=== PATIENT | male | born 2000 | race Two or more races ===

== ENCOUNTER 2023-12-24 09:50 | Emergency (ER) | payer MEDICAID ==
[~2023-12-24] VITALS: Ht 167.6 cm; Wt 75.0 kg
[2023-12-24 09:55] VITALS: TEMP 98.2
[2023-12-24] MEDS: LIDOCAINE 5% TRANSDERMAL PATCH TD ONE (11:53)
[2023-12-24] MEDS: KETOROLAC TROMETHAMINE 30 MG/ML VIAL IM ONE (11:53)
[2023-12-24] MEDS: BACLOFEN 10 MG TABLET PO ONE (11:53)
[2023-12-24] MEDS ORDERED: IBUP-1492 PO (12:46)
[2023-12-24] MEDS ORDERED: BACL10TA PO (12:50)
[2023-12-24 13:15] VITALS: BP 130/67; PULSE 66; RESP 18; O2SAT 99
== END 2023-12-24 13:50 | disposition home or self-care (01) ==
LOC: EMS 09:50
DX: S39.012A Strain of muscle, fascia and tendon of lower back, initial encounter (principal); G89.29 Other chronic pain; X58.XXXA Exposure to other specified factors, initial encounter; Y93.89 Activity, other specified; Y92.89 Other specified places as the place of occurrence of the external cause; Y99.8 Other external cause status
CPT/HCPCS: 99283; 72100; 96372; J1885

== ENCOUNTER 2023-12-30 22:46 | Inpatient (IN) | payer MEDICAID ==
[~2023-12-30] VITALS: Ht 165.1 cm; Wt 63.0 kg
[~2023-12-30 22:46] MED LIST: BACL10TA PO; IBUP-1492 PO
[2023-12-30 23:34] LABS: BASOPHILS % (AUTO) 0.3 % (0.0-2.0); EOSINOPHILS % (AUTO) 1.7 % (1.0-6.0); HEMATOCRIT 39.6 % (41-53); HEMOGLOBIN 13.1 g/dL (13.5-17.5); LYMPHOCYTES # (AUTO) 1.9 K/uL (1.0-4.8); MEAN CORPUSCULAR HEMOGLOBIN 29.1 pg (26.0-34.0); MEAN CORPUSCULAR HGB CONC 33.1 G/dL (31.0-37.0); MEAN CORPUSCULAR VOLUME 88 fL (80-100); MONOCYTES # (AUTO) 0.9 K/uL (0.1-1.0); MONOCYTES % (AUTO) 8.7 % (2.0-9.0); NEUTROPHILS # (AUTO) 7.1 K/uL (1.8-7.7); NEUTROPHILS % (AUTO) 70.3 % (40.0-70.0); PLATELET COUNT (AUTO) 269 K/uL (150-450); RED BLOOD CELL COUNT(AUTO) 4.51 MIL/uL (4.50-5.90); RED CELL DISTRIBUTION WIDTH 12.9 % (11.5-14.5); WHITE BLOOD COUNT (AUTO) 10.1 K/uL (4.5-11.0)
[2023-12-30 23:43] LABS: ANION GAP 11 mmol/L (8-16); CARBON DIOXIDE 26 mmol/L (22-29); CHLORIDE 100 mmol/L (98-107); CREATININE 0.93 mg/dL (0.60-1.30); GLOMERULAR FILTR. RATE CALC > 60 mL/min (>60); GLUCOSE,RANDOM 102 mg/dL (70-110); POTASSIUM 3.8 mmol/L (3.5-5.1); SODIUM SERUM 137 mmol/L (136-145); UREA NITROGEN, BLOOD 13 mg/dL (7-18)
[2023-12-31] MEDS: HYDROmorphone HCL 2 MG/ML SYRINGE IVP ONE (00:53)
[2023-12-31] MEDS: PIPERACILLIN/TAZO 3.375 GM/D5W 50 ML IV ONE (00:54)
[2023-12-31] MEDS: LIDOCAINE 1% 10 ML VIAL SQ ONE (00:54)
[2023-12-31] MEDS: ONDANSETRON HCL 4 MG/2 ML VIAL IVP ONE ×2 (00:54→03:59)
[2023-12-31] MEDS: IOHEXOL 9 MG/ML 500 ML BOTTLE PO ONE (02:10)
[2023-12-31] MEDS: SODIUM CHLORIDE 0.9% 1,000 ML IV ONE (02:10)
[2023-12-31] MEDS ORDERED: SODIUM CHLORIDE 0.9% 100 ML ONE (03:36)
[2023-12-31] MEDS ORDERED: IOHEXOL 350 MG/ML 100 ML VIAL ONE (03:36)
[2023-12-31 04:30] VITALS: BP 119/73; PULSE 54; RESP 18; O2SAT 97
[2023-12-31] MEDS: PIPERACILLIN/TAZO 3.375 GM/D5W 50 ML IV SCH ×2 (06:27→22:00)
[2023-12-31 07:35] VITALS: BP 116/69; PULSE 52; RESP 19; TEMP 98; O2SAT 100
[2023-12-31] MEDS ORDERED: MORPHINE SULFATE 2 MG/ML SYRINGE IVP PRN (12:30)
[2023-12-31] MEDS ORDERED: ZOLPIDEM TARTRATE 5 MG TABLET PO PRN (12:30)
[2023-12-31] MEDS ORDERED: ACETAMINOPHEN 325 MG TABLET PO PRN (12:30)
[2023-12-31] MEDS ORDERED: MAGNESIUM HYDROXIDE SUSPENSION 30 ML UDCUP PO PRN (12:30)
[2023-12-31] MEDS ORDERED: BISACODYL 10 MG RECTAL RECTAL SUPPOSITORY PR PRN (12:30)
[2023-12-31] MEDS ORDERED: BACLOFEN 10 MG TABLET PO PRN (12:30)
[2023-12-31] MEDS ORDERED: ONDANSETRON HCL 4 MG/2 ML VIAL IVP PRN (12:30)
[2023-12-31] MEDS: HEPARIN SODIUM,PORCINE 5,000 UNITS/ML VIAL SQ SCH (15:52)
[2023-12-31 16:00] VITALS: BP 120/71; PULSE 61; RESP 20; TEMP 98.3; O2SAT 99
[2023-12-31 20:15] VITALS: BP 113/61; PULSE 62; RESP 18; TEMP 98; O2SAT 100
[2023-12-31] MEDS: DOCUSATE SODIUM 100 MG CAPSULE PO SCH (20:15)
[2023-12-31] MEDS: HYDROCODONE/ACETAMINOPHEN 5-325 MG TABLET PO PRN (20:15)
[2024-01-01 05:17] VITALS: BP 134/50; PULSE 59; RESP 18; TEMP 98; O2SAT 99
[2024-01-01 07:08] LABS: BASOPHILS % (AUTO) 0.9 % (0.0-2.0); EOSINOPHILS % (AUTO) 2.8 % (1.0-6.0); HEMATOCRIT 39.7 % (41-53); HEMOGLOBIN 13.4 g/dL (13.5-17.5); LYMPHOCYTES # (AUTO) 1.6 K/uL (1.0-4.8); LYMPHOCYTES % (AUTO) 26.6 % (22.0-44.0); MEAN CORPUSCULAR HEMOGLOBIN 29.5 pg (26.0-34.0); MEAN CORPUSCULAR HGB CONC 33.8 G/dL (31.0-37.0); MEAN CORPUSCULAR VOLUME 87 fL (80-100); MONOCYTES # (AUTO) 0.8 K/uL (0.1-1.0); MONOCYTES % (AUTO) 12.6 % (2.0-9.0); NEUTROPHILS # (AUTO) 3.5 K/uL (1.8-7.7); NEUTROPHILS % (AUTO) 57.1 % (40.0-70.0); PLATELET COUNT (AUTO) 267 K/uL (150-450); RED BLOOD CELL COUNT(AUTO) 4.55 MIL/uL (4.50-5.90); RED CELL DISTRIBUTION WIDTH 13.1 % (11.5-14.5); WHITE BLOOD COUNT (AUTO) 6.2 K/uL (4.5-11.0)
[2024-01-01 07:11] LABS: ANION GAP 7 mmol/L (8-16); CALCIUM, TOTAL 9.1 mg/dL (8.8-10.5); CARBON DIOXIDE 29 mmol/L (22-29); CHLORIDE 102 mmol/L (98-107); CREATININE 1.02 mg/dL (0.60-1.30); GLOMERULAR FILTR. RATE CALC > 60 mL/min (>60); GLUCOSE,RANDOM 90 mg/dL (70-110); POTASSIUM 3.9 mmol/L (3.5-5.1); SODIUM SERUM 138 mmol/L (136-145); UREA NITROGEN, BLOOD 7 mg/dL (7-18)
[2024-01-01 07:24] VITALS: BP 105/61; PULSE 57; RESP 18; TEMP 98.4; O2SAT 99
[2024-01-01] MEDS: PANTOPRAZOLE SODIUM 40 MG DR TABLET PO SCH (08:03)
[2024-01-01 15:21] VITALS: BP 112/61; PULSE 59; RESP 18; TEMP 98.5; O2SAT 98
[2024-01-01] MEDS ORDERED: SODIUM CL IRRIG SOLN BOTTLE 250 ML IRRIG ONE (16:47)
[2024-01-01 19:53] VITALS: BP 110/60; PULSE 55; RESP 18; TEMP 97.8; O2SAT 99
[2024-01-02 06:21] VITALS: BP 107/69; PULSE 56; RESP 18; TEMP 97.9; O2SAT 99
[2024-01-02 07:25] LABS: BASOPHILS % (AUTO) 0.7 % (0.0-2.0); EOSINOPHILS % (AUTO) 2.3 % (1.0-6.0); HEMATOCRIT 41.1 % (41-53); HEMOGLOBIN 13.8 g/dL (13.5-17.5); LYMPHOCYTES # (AUTO) 1.7 K/uL (1.0-4.8); LYMPHOCYTES % (AUTO) 24.3 % (22.0-44.0); MEAN CORPUSCULAR HEMOGLOBIN 29.3 pg (26.0-34.0); MEAN CORPUSCULAR HGB CONC 33.5 G/dL (31.0-37.0); MEAN CORPUSCULAR VOLUME 87 fL (80-100); MONOCYTES # (AUTO) 0.6 K/uL (0.1-1.0); NEUTROPHILS # (AUTO) 4.5 K/uL (1.8-7.7); NEUTROPHILS % (AUTO) 63.7 % (40.0-70.0); PLATELET COUNT (AUTO) 299 K/uL (150-450); RED BLOOD CELL COUNT(AUTO) 4.71 MIL/uL (4.50-5.90); WHITE BLOOD COUNT (AUTO) 7.1 K/uL (4.5-11.0)
[2024-01-02 07:31] LABS: ANION GAP 7 mmol/L (8-16); CALCIUM, TOTAL 8.9 mg/dL (8.8-10.5); CARBON DIOXIDE 28 mmol/L (22-29); CHLORIDE 103 mmol/L (98-107); GLOMERULAR FILTR. RATE CALC > 60 mL/min (>60); GLUCOSE,RANDOM 95 mg/dL (70-110); POTASSIUM 3.7 mmol/L (3.5-5.1); SODIUM SERUM 138 mmol/L (136-145); UREA NITROGEN, BLOOD 12 mg/dL (7-18)
[2024-01-02 09:35] VITALS: BP 121/71; PULSE 60; RESP 19; TEMP 98.9; O2SAT 98
[2024-01-02 16:43] VITALS: BP 118/70; PULSE 64; RESP 19; TEMP 98.2; O2SAT 99
[2024-01-02 19:31] VITALS: BP 116/62; PULSE 58; RESP 18; TEMP 98.8; O2SAT 97
[2024-01-03 04:49] VITALS: BP 112/64; PULSE 61; RESP 18; TEMP 97.8; O2SAT 95
[2024-01-03 06:53] LABS: BASOPHILS % (AUTO) 0.5 % (0.0-2.0); EOSINOPHILS % (AUTO) 2.4 % (1.0-6.0); HEMATOCRIT 43.3 % (41-53); HEMOGLOBIN 14.4 g/dL (13.5-17.5); LYMPHOCYTES # (AUTO) 2.1 K/uL (1.0-4.8); LYMPHOCYTES % (AUTO) 29.1 % (22.0-44.0); MEAN CORPUSCULAR HEMOGLOBIN 29.2 pg (26.0-34.0); MEAN CORPUSCULAR HGB CONC 33.3 G/dL (31.0-37.0); MEAN CORPUSCULAR VOLUME 88 fL (80-100); MONOCYTES # (AUTO) 0.6 K/uL (0.1-1.0); NEUTROPHILS # (AUTO) 4.2 K/uL (1.8-7.7); PLATELET COUNT (AUTO) 317 K/uL (150-450); RED BLOOD CELL COUNT(AUTO) 4.95 MIL/uL (4.50-5.90); RED CELL DISTRIBUTION WIDTH 12.9 % (11.5-14.5); WHITE BLOOD COUNT (AUTO) 7.1 K/uL (4.5-11.0)
[2024-01-03 07:02] LABS: ANION GAP 11 mmol/L (8-16); CARBON DIOXIDE 26 mmol/L (22-29); CHLORIDE 101 mmol/L (98-107); CREATININE 1.03 mg/dL (0.60-1.30); GLOMERULAR FILTR. RATE CALC > 60 mL/min (>60); GLUCOSE,RANDOM 93 mg/dL (70-110); POTASSIUM 3.9 mmol/L (3.5-5.1); SODIUM SERUM 138 mmol/L (136-145); UREA NITROGEN, BLOOD 13 mg/dL (7-18)
[2024-01-03 09:00] VITALS: BP 108/64; PULSE 64; RESP 18; TEMP 97.1; O2SAT 99
[2024-01-03] MEDS ORDERED: DOXY-354 PO (12:14)
[2024-01-03] MEDS ORDERED: CEPH-558 PO (12:14)
[2024-01-03] MEDS ORDERED: CLIN300C58 PO (12:18)
== END 2024-01-03 17:03 | disposition home or self-care (01) | DRG 501 ==
LOC: EMS 22:46 → EDH 12-31 03:09 → 6S 12-31 04:33
PROVIDERS: ADMIT Internal Medicine; ATTEND Internal Medicine
PROC: 0V950ZZ Drainage of Scrotum, Open Approach (ICD-10-PCS; principal; 2023-12-31)
DX: N49.2 Inflammatory disorders of scrotum (principal); D64.9 Anemia, unspecified
CPT/HCPCS: 55100; 74177; 80048; 85025; 87040; 87070; 87186; 87205; 99285; G0378; J1170; J1644; J2405; J2543; J3490; J7030; J7050

== ENCOUNTER 2024-07-29 15:37 | Emergency (ER) | payer MEDICAID, OTHER ==
[~2024-07-29] VITALS: Ht 175.3 cm; Wt 74.1 kg
[~2024-07-29 15:37] MED LIST changes: -BACL10TA PO; +BRIM5DRO10 OU; +BUSP15 PO; -IBUP-1492 PO; +LEVO750T68 PO; +LINE600T14 PO
[2024-07-29 15:45] VITALS: TEMP 98.5
[2024-07-29] MEDS: LIDOCAINE 1% 10 ML VIAL ID ONE (18:21)
[2024-07-29] MEDS: IBUPROFEN 600 MG TABLET PO ONE (18:22)
[2024-07-29] MEDS ORDERED: CEPH-558 PO (19:30)
[2024-07-29] MEDS ORDERED: IBUP-1492 PO (19:30)
[2024-07-29] MEDS ORDERED: SULF-261 PO (19:30)
[2024-07-29] MEDS: CEPHALEXIN MONOHYDRATE 500 MG CAPSULE PO ONE (19:33)
[2024-07-29] MEDS: SULFAMETHOX/TRIMETH DS 800-160 MG/TABLET PO ONE (19:33)
[2024-07-29 19:38] VITALS: BP 115/70; PULSE 84; RESP 16; O2SAT 98
== END 2024-07-29 19:41 | disposition home or self-care (01) ==
LOC: EMS 15:37
DX: L02.31 Cutaneous abscess of buttock (principal); Z79.899 Other long term (current) drug therapy
CPT/HCPCS: 99284; 10060; J3490

== ENCOUNTER 2024-07-31 18:15 | Emergency (ER) | payer OTHER ==
[~2024-07-31] VITALS: Ht 175.3 cm; Wt 78.6 kg
[~2024-07-31 18:15] MED LIST changes: +CEPH-558 PO; +IBUP-1492 PO; -LEVO750T68 PO; -LINE600T14 PO; +SULF-261 PO
[2024-07-31 19:30] VITALS: BP 117/65; PULSE 68; RESP 18; TEMP 97.9; O2SAT 98
== END 2024-07-31 21:34 | disposition left against medical advice (07) ==
LOC: EMS 18:15
DX: L02.31 Cutaneous abscess of buttock (principal); Z53.21 Procedure and treatment not carried out due to patient leaving prior to being seen by health care provider